=== PATIENT | male | born 1995 | race Caucasian/White ===

== ENCOUNTER 2016-10-25 23:17 | Emergency (ER) | payer BC, OTHER ==
--- NOTE | 2016-10-26 00:19 | EDPHY ---
H & P Stated Complaint: wants to see if he has std Time Seen by Provider: 10/25/16 23:45 HPI/ROS: Chief Complaint: Skin rash HPI: 21-year-old male presenting with a skin rash on his penis which has been there intermittently for the last several months. Patient states he was tested positive for Chlamydia June. He had a full course of treatment. Follow-up testing 3 months later was negative. He states he has been having an area of irritation on the shaft of his penis intermittently for the past 3 months. It is not painful. Is not blistering. Is not spreading. First she thought it was secondary to really takes: Disease using intermittently. He is concerned however that might be herpes. Has not had any lymph node swelling in his groin. No other pain was lesions. No fevers or chills. No urethral discharge. ROS: 10 point Review of Systems is negative except as noted in the HPI. PMH: Denies Social History: [No] smoking, occasional alcohol, occasional marijuana Family History: [non-contributory] Physical Exam: General: Awake, alert, no acute distress Genital: Testes are distended, there is no swelling. There is normal cremasteric. Normal lie. There is no inguinal lymphadenopathy or rash. There is a small 2 x 3 mm region on the dorsal shaft of his penis just proximal to the glans. It is not tender. It is not raised. Not blistering. There is no urethral discharge. There are no other lesions. There is no ulceration. Skin: No rash - Personal History Current Tetanus/Diphtheria Vaccine: Yes Current Tetanus Diphtheria and Acellular Pertussis (TDAP): Yes - Medical/Surgical History Hx Asthma: No Hx Chronic Respiratory Disease: No Hx Diabetes: No Hx Cardiac Disease: No Hx Renal Disease: No Hx Cirrhosis: No Hx Alcoholism: No Hx HIV/AIDS: No Hx Splenectomy or Spleen Trauma: No - Social History Smoking Status: Current some day smoker Constitutional: Initial Vital Signs Temperature (C) 36.5 C 10/25/16 23:21 Heart Rate 109 H 10/25/16 23:21 Respiratory Rate 18 10/25/16 23:21 Blood Pressure 145/86 H 10/25/16 23:21 O2 Sat (%) 98 10/25/16 23:21 O2 Delivery Mode Room Air Allergies/Adverse Reactions: cat dander Allergy (Verified 10/25/16 23:21) horse dander Allergy (Verified 10/25/16 23:21) scallops Allergy (Verified 10/25/16 23:21) cat Allergy (Uncoded 10/25/16 23:21) hay Allergy (Uncoded 10/25/16 23:21) Home Medications: Medication Instructions Recorded NK [No Known Home Meds] 10/25/16 Medical Decision Making ED Course/Re-evaluation: 21-year-old male with a small lesion on the shaft of his penis. It is not blistering. Is not painful to touch. It is not a chancre. It is very small region that is consistent with either a mild contact dermatitis or more likely a screen reaction secondary to abrasion from sexual intercourse. He has had negative confirmatory STD testing a month or 2 ago after full treatment for Chlamydia. He has not had any urethral discharge. There is no lymphadenopathy. There is no findings suggestive of acute ST at this time. His history is not suggestive of HSV. Is not painful there is no weeping or discharge. He has been reassured and instructed to follow up with community health for any concerns or worsening of symptoms. Departure - Departure Disposition: Home, Routine, Self-Care Clinical Impression: Dermatitis Condition: Good Instructions: Dermatitis (ED) Additional Instructions: If rash worsens, becomes painful, or starts leaking fluid follow up at [facility] for further testing. Try using latex-free condoms only. Referrals: [facility]IN[facility] Bernard,. [Clinic] - As per Instructions
[2016-10-26 00:32] VITALS: BP 128/76; PULSE 86; RESP 16; TEMP 98.1; O2SAT 97
== END 2016-10-26 00:32 | disposition home or self-care (01) ==
LOC: EEVIPCON 23:17
DX: L30.9 Dermatitis, unspecified (principal); F17.200 Nicotine dependence, unspecified, uncomplicated